=== PATIENT | female | born 1990 | race Caucasian/White ===

== ENCOUNTER 2018-11-11 18:55 | Emergency (ER) | payer OTHER ==
[~2018-11-11] VITALS: Ht 172.7 cm; Wt 56.7 kg
--- NOTE | 2018-11-11 19:01 | NUR ---
ED Nurse Note: Pt is in the restroom laureano. Will call again.
--- NOTE | 2018-11-11 19:10 | NUR ---
ED Nurse Note: Pt came in from home due to burning sensation, frequency, and lower back pain x 4 days. "Suspects to be UTI". Pt has hx of UTI and has been treated for kidney stones laureano.
--- NOTE | 2018-11-11 19:23 | NUR ---
ED Nurse Note: urine collected; sent down to lab.
[2018-11-11 19:24] VITALS: BP 158/122
[2018-11-11] MEDS ORDERED: CEPHALEXIN500 MG ORAL (19:46)
--- NOTE | 2018-11-11 19:46 | Emergency Room Report ---
History of Present Illness General Chief Complaint: Female Urogenital Problems Source: Patient Present Illness HPI 28-year-old female with history of recurrent urinary tract infections and currently having a renal stone in the right kidney that has an appointment for lithotripsy in December here complaining of 2 days of urinary frequency and dysuria. Patient denies any suprapubic pain and reports that her right-sided flank pain has not gotten worse since the last time she saw her urologist couple weeks ago. Patient denies any hematuria, nausea vomiting, fever and chills. Patient reports that about 2 months ago she developed a UTI and ended up having pyelonephritis and accidental discovery of a right renal stone she was hospitalized and was given IV hydration as well as IV antibiotics. Patient has been getting recurrent urinary tract infections and according to her urologist this is secondary to her renal stone. Patient has been on multiple courses of antibiotics in the past 2 months including Keflex, Bactrim, Cipro, and Macrobid. Patient's last course of antibiotics was Cipro. Denies chest pain, shortness of breath, palpitation, and all other associated symptoms. Denies recent sexual activity, vaginal pruritus or ulcers, or discharge. Her last menstrual period was 6 days ago and regular. Allergies: Coded Allergies: No Known Allergies (Unverified , 11/11/18) Patient History Past Medical History: see triage record Past Surgical History: unable to obtain Pertinent Family History: none Last Menstrual Period: 10/2018 Now: No Immunizations: UTD Reviewed Nursing Documentation: PMH: Agreed; PSxH: Agreed Nursing Documentation-PMH Past Medical History: No History, Except For Review of Systems All Other Systems: negative except mentioned in HPI Physical Exam Vital Signs Date Time Temp Pulse Resp B/P (MAP) Pulse Ox O2 Delivery O2 Flow Rate FiO2 11/11/18 19:06 98.4 101 20 158/122 (134) 99 Room Air Sp02 EP Interpretation: reviewed, normal General Appearance: normal inspection, well appearing, no apparent distress, alert, non-toxic Head: normocephalic, atraumatic Eyes: bilateral eye normal inspection, bilateral eye fluoroscene uptake ENT: normal ENT inspection, hearing grossly normal Neck: normal inspection, full range of motion Respiratory: normal inspection, chest non-tender, lungs clear, normal breath sounds, no wheezing Cardiovascular #1: normal inspection, regular rate, rhythm, no gallop, no JVD, no murmur Gastrointestinal: normal inspection, non tender, soft, no mass, no bruit Genitourinary: no CVA tenderness Musculoskeletal: normal inspection, back normal, digits/nails normal, normal range of motion Neurologic: normal inspection, alert, oriented x3 Psychiatric: normal inspection, judgement/insight normal Skin: no rash Lymphatic: normal inspection, no adenopathy Medical Decision Making PA Attestation Diagnosis and treatment plans were reviewed and discussed with my supervising physician Dr. Chowdhury Diagnostic Impression: Primary Impression: UTI (urinary tract infection) ER Course 28-year-old female with history of recurrent urinary tract infections and currently having a renal stone in the right kidney that has an appointment for lithotripsy in December here complaining of 2 days of urinary frequency and dysuria. Patient denies any suprapubic pain and reports that her right-sided flank pain has not gotten worse since the last time she saw her urologist couple weeks ago. Patient denies any hematuria, nausea vomiting, fever and chills. Patient reports that about 2 months ago she developed a UTI and ended up having pyelonephritis and accidental discovery of a right renal stone she was hospitalized and was given IV hydration as well as IV antibiotics. Patient has been getting recurrent urinary tract infections and according to her urologist this is secondary to her renal stone. Patient has been on multiple courses of antibiotics in the past 2 months including Keflex, Bactrim, Cipro, and Macrobid. Patient's last course of antibiotics was Cipro. Denies chest pain, shortness of breath, palpitation, and all other associated symptoms. Denies recent sexual activity, vaginal pruritus or ulcers, or discharge. Her last menstrual period was 6 days ago and regular. Ddx considered but are not limited to: UTI, pyelonephritis, urinary incontinence , prolapsed bladder Vital signs: are WNL, pt. is afebrile H&PE are most consistent with: Uncomplicated UTI ORDERS: UA, urine cx, urine test, Keflex ED INTERVENTIONS: None required at this time. DISCHARGE: At this time pt. is stable for d/c to home. Will provide printed patient care instructions, and any necessary prescriptions. Care plan and follow up instructions have been discussed with the patient prior to discharge. Patient to follow-up with her urologist if fever and chills nausea vomiting return to emergency room Last Vital Signs Date Time Temp Pulse Resp B/P (MAP) Pulse Ox O2 Delivery O2 Flow Rate FiO2 11/11/18 19:24 98.4 101 20 158/122 99 Room Air Disposition: HOME, SELF-CARE Condition: Stable Scripts Phenazopyridine Hcl* (PYRIDIUM*) 200 Mg Tablet 200 MG ORAL THREE TIMES A DAY for 2 Days, #6 TAB 0 Refills Prov: Jorge Kaiser 11/11/18 Cephalexin* (KEFLEX*) 500 Mg Capsule 500 MG ORAL EVERY 6 HOURS for 7 Days, #28 CAP Prov: Jorge Kaiser 11/11/18 Patient Instructions: Urinary Tract Infection Additional Instructions: Take medication as directed follow-up with your urologist regarding your renal stone as well as your recurrent UTI increase your oral hydration if worsening symptoms, fever and chills, nausea vomiting return to the emergency room Jorge Kaiser Nov 11, 2018 19:46
[2018-11-11] MEDS ORDERED: PHENAZOPYRIDIN200 MG ORAL (19:47)
[2018-11-11 19:54] LABS: APPEARANCE,URINE CLOUDY; COLOR,URINE YELLOW
[2018-11-11 19:55] LABS: BILIRUBIN, URINE NEGATIVE (NEGATIVE); GLUCOSE, URINE (UA) NEGATIVE (NEGATIVE); KETONES,URINE NEGATIVE (NEGATIVE); LEUKOCYTE ESTERASE ,URINE 3+ (NEGATIVE); NITRITE,URINE NEGATIVE (NEGATIVE); PH,URINE 6.5 (4.5-8.0); PROTEIN,URINE 1+ (NEGATIVE); UROBILINOGEN,URINE NORMAL MG/DL (0.0-1.0)
[2018-11-11 20:00] VITALS: BP 158/122
--- NOTE | 2018-11-11 20:00 | NUR ---
ER DISCHARGE NOTE: Patient is cleared to be discharged per ERMD, pt is aox4, on room air, with stable vital signs. pt was given dc and prescription instructions, pt was able to verbalize understanding, pt id band removed. pt is able to ambulate with steady gait. pt took all belongings.
== END 2018-11-11 20:00 | disposition home or self-care (01) ==
LOC: EMR 19:50
DX: N39.0 Urinary tract infection, site not specified (principal); Z87.442 Personal history of urinary calculi
CPT/HCPCS: 81001; 81025; 87086; 87181; 99283

== ENCOUNTER 2020-07-05 00:06 | Emergency (ER) | payer OTHER ==
[~2020-07-05] VITALS: Ht 172.7 cm; Wt 59.0 kg
[~2020-07-05 00:06] MED LIST: CEPHALEXIN500 MG ORAL; PHENAZOPYRIDIN200 MG ORAL
[2020-07-05 00:18] VITALS: BP 157/104
--- NOTE | 2020-07-05 00:20 | NUR ---
ED Nurse Note: Patient walked into ED c/o hypertension, patient reports of having a systolic in the 170s prior to arrival. reports of dizziness and a frontal headache that she rates a 6/10 pain. patient does have a history of hypertension and takes propranalol. patient placed on gurney. will wait for further orders
--- NOTE | 2020-07-05 00:26 | Emergency Room Report ---
History of Present Illness General Chief Complaint: Hypertension Source: Patient Present Illness HPI This is a 29-year-old female with a history of anxiety and hypertension. She takes propanolol for it. She presents with chief complaint of high blood pressure. 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 Tonight it was systo lic 170/125. She took extra 80 mg of propanolol. Denies any suicidal thoughts homicidal thought. Other than stress, she denies any drugs or alcohol use. She has no chest pain or shortness of breath. No urinary complaint. Allergies: Coded Allergies: No Known Allergies (Unverified , 11/11/18) COVID-19 Screening Contact w/high risk pt: No Experienced COVID-19 symptoms?: No COVID-19 Testing performed [employer]ELOPER: No Patient History Past Medical History: see triage record, old chart reviewed, HTN, psych hx Past Surgical History: none Pertinent Family History: none Social History: Denies: smoking Now: No Immunizations: other Reviewed Nursing Documentation: PMH: Agreed; PSxH: Agreed Review of Systems Eye: Denies: eye pain, blurred vision ENT: Denies: ear pain, nose congestion, throat swelling Respiratory: Denies: cough, shortness of breath Cardiovascular: Denies: chest pain, palpitations Gastrointestinal: Denies: abdominal pain, diarrhea, nausea, vomiting Musculoskeletal: Denies: back pain, joint pain Skin: Denies: rash Neurological: Denies: headache, numbness Endocrine: Denies: increased thirst, increased urine Hematologic/Lymphatic: Denies: easy bruising All Other Systems: negative except mentioned in HPI Physical Exam Vital Signs Date Time Temp Pulse Resp B/P (MAP) Pulse Ox O2 Delivery O2 Flow Rate FiO2 07/05/20 00:09 98.2 73 18 157/104 (121) 99 Vitals with hypertension Sp02 EP Interpretation: reviewed, normal General Appearance: well appearing, no apparent distress, alert Head: normocephalic, atraumatic Eyes: bilateral eye PERRL, bilateral eye EOMI ENT: hearing grossly normal, normal pharynx Neck: full range of motion, supple, no meningismus Respiratory: chest non-tender, lungs clear, normal breath sounds Cardiovascular #1: regular rate, rhythm, no murmur Gastrointestinal: normal bowel sounds, non tender, no mass, no organomegaly, no bruit, non-distended Musculoskeletal: back normal, normal range of motion, gait/station normal Psychiatric: mood/affect normal Medical Decision Making Diagnostic Impression: Primary Impression: Hypertension Qualified Codes: I10 - Essential (primary) hypertension ER Course Patient presents with hypertension. There is no evidence of endorgan damage. Pressure is better now. It is 126/87. Will discharge home. Last Vital Signs Date Time Temp Pulse Resp B/P (MAP) Pulse Ox O2 Delivery O2 Flow Rate FiO2 07/05/20 00:18 73 18 07/05/20 00:18 98.2 157/104 99 Status: improved Disposition: HOME, SELF-CARE Condition: Stable Scripts Hydrochlorothiazide* (HYDROCHLOROTHIAZIDE*) 25 Mg Tablet 25 MG ORAL DAILY for Hypertension, #90 TAB Prov: Paul Ziegler MD 07/05/20 Referrals: NON PHYSICIAN (PCP) Additional Instructions: Follow-up with your doctor in 1 to 2 weeks. Return if symptoms worsen. Paul Ziegler MD Jul 05, 2020 00:26
[2020-07-05 00:44] LABS: APPEARANCE,URINE CLEAR; BILIRUBIN, URINE NEGATIVE (NEGATIVE); COLOR,URINE PALE YELLOW; GLUCOSE, URINE (UA) NEGATIVE (NEGATIVE); KETONES,URINE NEGATIVE (NEGATIVE); LEUKOCYTE ESTERASE ,URINE 3+ (NEGATIVE); NITRITE,URINE NEGATIVE (NEGATIVE); PH,URINE 6.5 (4.5-8.0); PROTEIN,URINE NEGATIVE (NEGATIVE); UROBILINOGEN,URINE NORMAL MG/DL (0.0-1.0)
[2020-07-05 00:45] LABS: BASOPHILS % (AUTO) 1.1 % (0.0-2.0); EOSINOPHILS % (AUTO) 1.1 % (0.0-3.0); HEMATOCRIT 46.7 % (37.0-47.0); HEMOGLOBIN 15.1 G/DL (12.0-16.0); LYMPHOCYTES % (AUTO) 42.5 % (20.0-45.0); MEAN CORPUSCULAR VOLUME 95 FL (80-99); MONOCYTES % (AUTO) 10.1 % (1.0-10.0); NEUTROPHILS % (AUTO) 45.2 % (45.0-75.0); PLATELET COUNT 333 K/UL (150-450); RED BLOOD COUNT 4.92 M/UL (4.20-5.40); RED CELL DISTRIBUTION WIDTH 12.6 % (11.6-14.8); WHITE BLOOD COUNT 6.4 K/UL (4.8-10.8)
[2020-07-05 00:53] LABS: ANION GAP 10 mmol/L (5-15); BLOOD UREA NITROGEN 9 mg/dL (7-18); CALCIUM 9.7 MG/DL (8.5-10.1); CARBON DIOXIDE 27 MMOL/L (21-32); CHLORIDE 101 MMOL/L (98-107); CREATININE 0.8 MG/DL (0.55-1.30); SODIUM 138 MMOL/L (136-145)
[2020-07-05 00:56] VITALS: BP 125/92
[2020-07-05] MEDS ORDERED: HYDROCHLOROTHIA25 MG ORAL (01:05)
[2020-07-05 01:12] VITALS: BP 125/92
--- NOTE | 2020-07-05 01:12 | NUR ---
ER DISCHARGE NOTE: Patient is cleared to be discharged per ERMD, pt is aox4, on room air, with stable vital signs. pt was given dc and prescription instructions, pt was able to verbalize understanding, pt id band and iv site removed without complications. pt is able to ambulate with steady gait. pt took all belongings.
== END 2020-07-05 01:12 | disposition home or self-care (01) ==
LOC: EMR 00:23
DX: I10 Essential (primary) hypertension (principal)
CPT/HCPCS: 36415; 80048; 81001; 85025; Z7502; 99284